=== PATIENT | male | born 1950 | race Caucasian/White ===

== ENCOUNTER 2018-10-08 17:23 | Emergency (ER) | payer MEDICARE, MEDICAID ==
[~2018-10-08] VITALS: Ht 180.3 cm; Wt 79.4 kg
[~2018-10-08 17:23] MED LIST: AMIO200T4 GT; ASPI81CH59 PO; ATO40T PO; CIPR-173 PO; ENAL2.5T PO; FLUT1AER3 IN; METO-159 PO; METR500T PO; PANT40TA2 PO; SERT-274 PO
[2018-10-08 17:35] VITALS: BP 153/88
== END 2018-10-08 23:49 | disposition home or self-care (01) ==
LOC: EDBD 17:23 → ER 17:27
DX: S93.601A Unspecified sprain of right foot, initial encounter (principal); J44.9 Chronic obstructive pulmonary disease, unspecified; E78.5 Hyperlipidemia, unspecified; I10 Essential (primary) hypertension; I25.2 Old myocardial infarction; F17.210 Nicotine dependence, cigarettes, uncomplicated; Z95.1 Presence of aortocoronary bypass graft; Z79.82 Long term (current) use of aspirin; Z79.899 Other long term (current) drug therapy; V49.9XXA Car occupant (driver) (passenger) injured in unspecified traffic accident, initial encounter; Y93.89 Activity, other specified; Y92.488 Other paved roadways as the place of occurrence of the external cause; Y99.8 Other external cause status
CPT/HCPCS: 73630

== ENCOUNTER 2021-12-16 17:44 | Emergency (ER) | payer OTHER, MEDICAID ==
[~2021-12-16] VITALS: Ht 180.3 cm; Wt 90.7 kg
[~2021-12-16 17:44] MED LIST changes: -ENAL2.5T PO; +ENAL2.5T7 PO; -SERT-274 PO; +SERT50TA19 PO
[2021-12-16] MEDS ORDERED: DOPamine 1600MCG/ML D5W 250 ML IV ONE ×2 (18:00→18:03)
[2021-12-16] MEDS ORDERED: GLUCAGON HYDROCHLORIDE (RDNA) 1 MG VIAL IV ONE (18:00)
[2021-12-16] MEDS ORDERED: ETOMIDATE (2MG/ML) 20ML VIAL IV ONE ×2 (18:07→18:45)
[2021-12-16] MEDS ORDERED: SUCCINYLCHOLINE CHLORIDE 20 MG/ML 10ML VIAL IV ONE ×2 (18:07→18:45)
[2021-12-16] MEDS ORDERED: MIDAZOLAM DRIP 50 mg/50mL 50 ML IV ONE (18:07)
[2021-12-16] MEDS: DOPamine 1600MCG/ML D5W 250 ML IV SCH ×2 (18:08→22:18)
[2021-12-16] MEDS ORDERED: IOHEXOL 350 MG/ML 100ML IJ ONE (18:10)
[2021-12-16] MEDS ORDERED: SODIUM BICARBONATE 8.4% INJ 50ML SYRINGE ONE (18:12)
[2021-12-16] MEDS ORDERED: SODIUM BICARBONATE 8.4 % INJ 50ML VIAL IV ONE ×2 (18:15→20:15)
[2021-12-16 18:16] VITALS: BP 61/42
[2021-12-16] MEDS ORDERED: NOREPINEPHRINE 8 MG/250ML KIT 250 ML IV SCH (18:30)
[2021-12-16] MEDS ORDERED: MIDAZOLAM DRIP 50 mg/50mL 50 ML IV SCH (18:45)
[2021-12-16 18:52] LABS: Urine Bacteria NONE SEEN /hpf (None Seen); Urine Blood 3+ /uL (Negative); Urine Specific Gravity 1.016 (1.001-1.035); Urine WBC 407 /hpf (0 - 3); Urine WBC Clumps PRESENT /hpf (None Seen)
[2021-12-16 18:53] LABS: Red Cell Distribution Width 17.1 % (11.8-14.3)
[2021-12-16 18:56] LABS: Hematocrit 30.1 % (41.0-53.0); Mean Corpuscular Hemoglobin 25.8 pg (28.0-32.0); White Blood Cell 22.6 10^3/uL (4.4-10.8)
[2021-12-16 19:01] LABS: Basophils % (manual) 0 (0.0-2.0); Blast Cells 0; Metamyelocytes % 0; Myelocytes % 0; Promyelocytes % 0; Reactive Lymphocytes 0
[2021-12-16 19:10] LABS: Albumin 3.4 g/dL (3.4-5.0); Calcium 8.6 mg/dL (8.5-10.1)
[2021-12-16 19:14] LABS: Lactic Acid w/Reflex 11.7 mmol/L (0.4-2.0)
[2021-12-16] MEDS ORDERED: EPINEPHrine HCL 250 ML IV SCH (19:15)
[2021-12-16 19:20] LABS: Band Neutrophils % (manual) 4; Eosinophils % (manual) 1 (0-7); Lymphocytes % (manual) 3 (10.0-50.0); Monocytes % (manual) 5 (0-12)
[2021-12-16 19:27] LABS: BUN/Creatinine Ratio 27.5; Bilirubin, Total 2.7 mg/dL (0.2-1.0); Total Protein 6.1 g/dL (6.4-8.2)
[2021-12-16 19:39] LABS: Amphetamine Screen, Urine NEGATIVE (NEGATIVE); Barbiturate Scree,Urine NEGATIVE (NEGATIVE); Benzodiazephine Screen, Urine NEGATIVE (NEGATIVE); Cannabinoid Screen, Urine NEGATIVE (NEGATIVE); Cocaine Screen, Urine NEGATIVE (NEGATIVE); Opiate Scree,Urine POSITIVE (NEGATIVE); Phencyclidine Screen, Urine NEGATIVE (NEGATIVE)
[2021-12-16 19:43] LABS: INR 2.64 (0.9-1.15)
[2021-12-16] MEDS ORDERED: PIPERACILLIN-TAZOB 3.375GM 100 ML IV ONE (19:45)
[2021-12-16] MEDS ORDERED: SODIUM ZIRCONIUM CYCL 10 GM PAK GT ONE (19:45)
[2021-12-16] MEDS ORDERED: ALBUTEROL SULF 2.5 MG/0.5ML(0.5%) NEB SOLN NEB ONE (19:45)
[2021-12-16] MEDS ORDERED: VANCOMYCIN PER PHARMACY 0 MG IV SCH (19:45)
[2021-12-16] MEDS ORDERED: CALCIUM GLUC 1,000mg/50ml-NS 50 ML IV ONE (19:45)
[2021-12-16] MEDS ORDERED: DEXTROSE (50%) 50ML SYRG IV ONE ×2 (19:45)
[2021-12-16] MEDS ORDERED: InsuLIN REG 1unit/0.01ml Soln (100units/ml) IV ONE ×2 (19:45)
[2021-12-16 19:56] VITALS: BP 84/18
[2021-12-16] MEDS ORDERED: VANCOMYCIN 1GM/250ML 250 ML IV ONE (20:00)
[2021-12-16 21:48] VITALS: BP 107/30
[2021-12-16] MEDS ORDERED: ONDANSETRON HCL 4 MG/2 ML VIAL IV PRN (22:00)
[2021-12-16] MEDS ORDERED: DEXTROSE (50%) 50ML SYRG IV PRN (22:00)
[2021-12-16] MEDS ORDERED: FAMOTIDINE (10MG/ML) 2ML VL IV SCH (22:00)
[2021-12-16] MEDS ORDERED: IBUPROFEN 100MG/5ML ORAL SUSP 100 MG/5 ML UD GT PRN (22:00)
[2021-12-16] MEDS ORDERED: D5W/SOD CHL 0.45% 1,000 ML IV SCH (22:15)
[2021-12-16 23:22] VITALS: BP 82/47
[2021-12-16] MEDS ORDERED: NITROGLYCERIN 0.4 MG SL TAB SL PRN (23:30)
[2021-12-16] MEDS ORDERED: MORPHINE SULFATE INJ 2 MG/ml SYRG IV PRN (23:30)
[2021-12-17] MEDS ORDERED: InsuLIN REG 1unit/0.01ml Soln (100units/ml) SC SCH
[2021-12-17] MEDS ORDERED: ACCU-CHEK COMFORT CURVE STRIP VI SCH
[2021-12-17] MEDS ORDERED: SODIUM BICARBONATE 50ML VIAL 100 ML in D5W 5% 1,000 ML IV SCH (00:30)
[2021-12-17 01:15] VITALS: BP 74/48
[2021-12-17] MEDS ORDERED: PIPERACILLIN-TAZOB 2.25GM 50 ML IV SCH (02:00)
== END 2021-12-17 01:21 ==
LOC: EDBD 17:44 → ER 17:44 → TELE 23:23 → UNDOADMIN 23:23 → TELE 23:38 → ICU WEST 23:38 → ER 12-17 01:21
DX: N19 Unspecified kidney failure (principal); E87.5 Hyperkalemia; J96.90 Respiratory failure, unspecified, unspecified whether with hypoxia or hypercapnia; N39.0 Urinary tract infection, site not specified; A41.9 Sepsis, unspecified organism; R00.1 Bradycardia, unspecified; I48.91 Unspecified atrial fibrillation; I11.0 Hypertensive heart disease with heart failure; I50.9 Heart failure, unspecified; I25.2 Old myocardial infarction; J44.9 Chronic obstructive pulmonary disease, unspecified; E78.5 Hyperlipidemia, unspecified; F17.210 Nicotine dependence, cigarettes, uncomplicated; Z90.49 Acquired absence of other specified parts of digestive tract; Z95.1 Presence of aortocoronary bypass graft; Z79.82 Long term (current) use of aspirin; Z79.899 Other long term (current) drug therapy; Z20.822 Contact with and (suspected) exposure to COVID-19
CPT/HCPCS: 31500; 36415; 36600; 71045; 80053; 80307; 80320; 81001; 82140; 82805; 82962; 83605; 83880; 84484; 85007; 85027; 85610; 85730; 87040; 87070; 87077; 87186; 87205; 87426; 93005; 94640; 96365; 96366; 96368; 96375; 96376; 99291; J0171; J0330; J0610; J1265; J1610; J1815; J2250; J2543; J3490; J7042; J7070; Q9967; 94002; G0378